=== PATIENT | male | born 1980 | race Caucasian/White ===

== ENCOUNTER 2024-10-28 08:42 | Emergency (ER) | payer OTHER, SELFPAY ==
--- OUTSIDE RECORDS SUMMARY | 2024-10-28 08:45 | XMS_ITS ---
Author Organization [facility] Address [address] [place] [address] Care Team Providers Care Print Operator Name Role Phone Jas Iverson Primary Care Provider REASON FOR VISIT AWM Social History Sex Assigned At : Social History Observation Description Sex Assigned At Male Encounters Encounter Location Date Provider Diagnosis [address] [address] 10/25/2024 Jas Iverson Plan Of Treatment No Information Progress Notes * Jose SOLISOB:1980 (43 yo M)Acc No.[id number]:10/25/2024 UNLOCKED PROGRESS NOTE Patient: Bijan HERNANDEZ :1980 A ge:43 Y S ex:Male Phone: Address:[place], [address] Subjective: * Chief Complaints: * A WM * HPI: A mbulatory Withdrawal Intake: Intake Screening for Ambulatory Withdrawal Services F or female patients, are you currently ? M tasha client - not applicable S ubstance of Choice A lcohol, Methamphetamines D ate of last alcohol use: 0 10/20/2024 H ow often do you (or how often were you) consuming alcohol? D aily W hat type of alcohol and how much do you consume when you do drink? l iquor - pint to a 1/5 per day D ate of last methamphetamine use 0 10/20/2024 H ow often do you (or how often did you) use methamphetamines? D aily H ow much methamphetamine did you use with each use? 1 -2g W as alcohol selected in the previous question? Y es A ny alcohol use in the last 30 days? If yes, complete PAWSS (1pt for each yes) Y es I ntoxicated or drunk in the last 30 days??Yes (1 pt) E ta undergone alcohol use rehab treatment or treatment for alcoholism? N o (0 pt) E ta experienced previous episodes of alcohol withdrawal (regardless of severity)? N o (0 pt) E ta experienced blackouts? N o (0 pt) E ta experienced alcohol withdrawal seizures??No (0 pt) E ta experienced delirium tremens or DTs??No (0 pt) H ave you combined alcohol with downers like benzodiazepines or barbiturates in the last 90 days? N o (0 pt) H ave you combined alcohol with any other substance of abuse during the last 90 days? N o (0 pt) F or substances other than alcohol, have you ever experienced seizures while going through withdrawal/detox? N o W hat MAR medication(s) are you seeking? C omfort medications for withdrawal period., Oral buprenorphine-containing products (suboxone, subutex, zubsolv), Oral naltrexone, Long-acting Vivitrol injection, Long-acting Sublocade (buprenorphine) injection, Long-acting Brixadi (buprenorphine) injection, Other: H ave you used comfort medications in the past to help reduce unpleasant symptoms during the withdrawal or detox process? N o P atient education provided (_select all that apply): A ll patients: Be sure to hydrate prior to and during detox. We encourage you to sip water, drinking eight 8oz glasses of water per day, if possible, and consume ice chips or freezer pops to assist with hydration., All patients: If possible, bring a loved one (roommate, friend, family member) to the appointment for Narcan and other medication education. Some medications may make you drowsy requiring someone else to transport you., All patients: Be aware that if medications are administered on site, the length of the appointment could change. Patients should relay information to transportation., All patients: if your medication of choice is not appropriate or not appropriate at this time, your provider will discuss alternative options with you, including the possibility of starting the medication from home., Pt interested in Naltrexone or Vivitrol: appointment time is approximately 2-3 hours. You must be free of opiates for 7-10 days., Pt interested in buprenorphine: Approximate appointment length is 2 hours. You must be in moderate withdrawal to start medication on site., Pt interested in Sublocade: You must be stable on a buprenorphine containing oral product for 7 days before receiving Sublocade., Pt interested in Brixadi: You must initiate treatment with oral buprenorphine products before receiving the injection. This may add additional time to your appointment if you are not already taking a buprenorphine-containing product. . * Medical History: * Surgical History: * Hospitalization/Major Diagno stic Procedure: * Medications: Objective: * Vitals: * Physical Examination: Assessment: Plan: * Treatment: * Procedure Codes: C HS16 Ambulatory Withdrawal - Intake screening * * Date: History and Physical Notes * HPI (History of Present Illness) Category Sub-Category Detail Notes Category Not es Ambulatory Withdrawal Intake Intake Screening for Ambulatory Withdrawal Services For female patients, are you currently ?: Male client - not applicable . Substance of Choice: Alcohol, Methamphet amines Date of last alcohol use:: 10/20/2024 How often do you (or how often were you) consuming alcohol?: Daily What type of alcohol and how much do you consume when you do drink?: liquor - pint to a 1/5 per day Date of last methamphetamine use: 10/20/2024 How often do you (or how often did you) use methamphetamines?: Daily How much methamphetamine did you use with each use?: 1-2g Was alcohol selected in the previous que stion?: Yes Any alcohol use in the last 30 days? If yes, complete PAWSS (1pt for each yes): Yes Intoxicated or drunk in the last 30 days?: Yes (1 pt) Ever undergone alcohol use rehab treatment or treatment for alcoholism?: No (0 pt) Ever experienced previous episodes of alcohol withdrawal (regardless of severity)?: No (0 pt) Ever experienced blackouts?: No (0 pt) Ever experienced alcohol withdrawal seizures?: No (0 pt) Ever experienced delirium tremens or DTs?: No (0 pt) Have you combined alcohol with downers like benzodiazepines or barbiturates in the last 90 days?: No (0 pt) Have you combined alcohol with any other substance of abuse during the last 90 days?: No (0 pt) For substances other than al cohol, have you ever experienced seizures while going through withdrawal/detox?: No What MAR medication(s) are y ou seeking?: Comfort medications for withdrawal period., Oral buprenorphine-containing products (suboxone, subutex, zubsolv), Oral naltrexone, Long-acting Vivitrol injection, Long-acting Sublocade (buprenorphine) injection, Long-acting Brixadi (buprenorphine) injection, Other: Have you used comfort medica tions in the past to help reduce unpleasant symptoms during the withdrawal or detox process?: No Patient education provided ( _select all that apply):: All patients: Be sure to hydrate prior to and during detox. We encourage you to sip water, drinking eight 8oz glasses of water per day, if possible, and consume ice chips or freezer pops to assist with hydration., All patients: If possible, bring a loved one (roommate, friend, family member) to the appointment for Narcan and other medication education. Some medications may make you drowsy requiring someone else to transport you., All patients: Be aware that if medications are administered on site, the length of the appointment could change. Patients should relay information to transportation., All patients: if your medication of choice is not appropriate or not appropriate at this time, your provider will discuss alternative options with you, including the possibility of starting the medication from home., Pt interested in Naltrexone or Vivitrol: appointment time is approximately 2-3 hours. You must be free of opiates for 7-10 days., Pt interested in buprenorphine: Approximate appointment length is 2 hours. You must be in moderate withdrawal to start medication on site., Pt interested in Sublocade: You must be stable on a buprenorphine containing oral product for 7 days before receiving Sublocade., Pt interested in Brixadi: You must initiate treatment with oral buprenorphine products before receiving the injection. This may add additional time to your appointment if you are not already taking a buprenorphine-containing product.
--- OUTSIDE RECORDS SUMMARY | 2024-10-28 08:45 | XMS_ITS | Patient Health Record ---
Author Organization [facility] Address [address] [place] [address] Care Team Providers Care Aviation Mechanic Name Role Phone Jas Iverson Primary Care Provider Lucia Gomez Unavailable [phone] Allergies No Known Allergies Results Component Value Reference Range Notes 14 Panel Urine Drug Screen Reviewed date:10/26/2024 08:47:28 AM Interpretation: Performing Lab: Notes/Report: THC POS LOBITO neg MOP (OPI) neg AMP POS MET POS BAR neg BZO neg MDMA neg MTD neg OXY neg PCP neg BUP neg TCA neg FTY neg Breathalyzer Reviewed date:10/26/2024 10:29:10 AM Interpretation: Performing Lab: Notes/Report: CASIE 0.000 Reason For Referral No Information Medications Medication SIG (Take, Route, Frequency, Duration) Notes Start Date End Date Status ARIPiprazole 5 MG 1 tablet Orally at night 022 Active Atorvastatin Calcium 40 MG 1 tablet Orally Once a day Active Ibuprofen 800 MG 1 tablet with food or milk as needed Orally every 8 hrs; Duration: 30 days As needed PAIN Not-Taking Ketoconazole 2 % 1 application TO FEE T Externally Once a day Unknown DULoxetine HCl 60 MG 1 capsule Orally On ce a day 01/03/2020 Active Tadalafil 5 MG 1 tablet as needed A T LEAST 1-2 HOURS PRIOR TO SEX Orally Once a day; Duration: 30 days Active BD Luer-Kevin Syringe 22G X 1-1/2 3 ML USE FOR TESTOSTERONE INTRAMUSCULARLY EVERY 2 WEEKS; Duration: 28 Not-Taking Testosterone Cypionate 200 MG/ML 1 ML Intramuscular EVERY 2 WEEKS 10/26/2024 Active Immunizations Vaccine Route Administration Date Status Comme nts FLU VAC NO PRSV 4VAL 6 mo+ IM Intramuscular 12/12/2019 Administered VIS Date 11/09/2018 Pt tolerated injection well. FLU VAC NO PRSV 4VAL 6 mo+ IM Intramuscular 02/02/2022 Administered Pt tolerated injection well. Pt voiced no questions or concerns Social History Sex Assigned At : Social History Observation Description Sex Assigned At Male PRAPARE Question Answer Notes Date Completed/Updated: 12/30/2022 What is your current housing situation? I do not have housing (staying with others, in a hotel, in a senior living, living outside on the street, on a beach, or in a park) Are you worried about losing your housing? No What is the highest level of school that you have finished? Less than a high school degree What is your current work situation? Oth erwise unemployed but not seeking work (ex. student, retired, disabled, unpaid primary rn managed care) In the past year, have you o r any family members you live with been unable to get any of the following when it was really needed? Check all that apply Food,Clothing,Utilities Has lack of transportation k ept you from medical appointments, meetings, work or from getting things needed for daily living? Yes, it has kept me from medical appointments or from getting my medications,Yes, it has kept me from non-medical meetings, appointments, work, or getting things needed for daily living How often do you see or talk to people that you care about and feel close to? (For example: talking to friends on the phone, visiting friends or family, going to anabaptist or club meetings) More than 5 times a week How stressed are you? Stress is when someone feels tense, nervous, anxious, or can\t sleep at night because their mind is troubled Quite a bit In the past year have you sp ent more than 2 nights in a row in a snf, care home, assisted center, or juvenile correctional facility? No Are you a refugee? I choose not to answer this q uestion What country are you from? I choose not to answe r this question In the past year, have you b een afraid of your partner or ex-partner? No PRAPARE Score: 12 Problems Problem Type SNOMED Code ICD Code Onset Dates Problem Status W/U Status Risk Notes Problem Tobacco user (535507545) Nicotine dependence, unspecified, uncomplicated (F17.200) Active confirmed Problem Chronic pain (56627517) Other chronic pain (G89.29) Active confirmed Problem Backache (626040182) Dorsalgia, unspecified (M54.9) Active confirmed Problem Depression (140235675) Depression (F32.9) 03/26/20 20 Active confirmed Problem Posttraumatic stress disorder (46492431) PTSD (post-traumatic stress disorder) (F43.10) Active confirmed Problem Psychoactive substance dependence (6589165) Chemical dependency (F19.20) Active confirmed Problem Acute exacerbation of chronic obstructive airways disease (190344878) COPD exacerbation (J44.1) Active confirmed Problem Chronic fatigue syndrome (70859293) Chronic fatigue (R53.82) Active confirmed Problem Nicotine dependence (90102570) Nicotine dependence (F17.200) Active confirmed Problem Obesity (943437330) Obesity (BMI 30-39.9) (E66.9) Active confirmed Problem Erectile dysfunction (disorder) (859443547) Erectile dysfunction, unspecified erectile dysfunction type (N52.9) Active confirmed Problem Hyperlipidaemia (81499399) Hyperlipidemia, unspecified hyperlipidemia type (E78.5) Active confirmed Problem COPD - Chronic obstructive pulmonary disease (76853685) Chronic obstructive pulmonary disease, unspecified COPD type (J44.9) Active confirmed Problem Bipolar disorder (47009818) Bipolar affective disorder, remission status unspecified (F31.9) 11/06/19 20 Active confirmed Problem Sexual dysfunction (63761040) Sexual dysfunction (R37) Active confirmed Problem Tobacco use (935008446) Tobacco use disorder (F17.200) Active confirmed Problem Obesity (061257254) Obesity, unspecified classification, unspecified obesity type, unspecified whether serious comorbidity present (E66.9) Active confirmed Problem Androgen deficiency (49895810) Testosterone deficiency (E34.9) Active confirmed Problem Opioid use disorder (7191330308) Opioid use disorder (F11.99) Active confirmed Problem Osteoarthritis (986347279) Osteoarthritis involving multiple joints on both sides of body (M15.9) Active confirmed Problem Cannabis-related disorder (49672863) Cannabis-related disorder (F12.99) Active confirmed Vital Signs Heart Rate 87 /min 10/26/2024 Temperature 98.4 degrees Fahrenheit 10/26/2024 Respiratory Rate 16 /min 10/26/2024 Blood pressure diastolic 80 mm Hg 10/26/2024 Oximetry 99 % 10/26/2024 Height 69 in 10/26/2024 Blood pressure systolic 118 mm Hg 10/26/2024 Weight 197.4 lbs 10/26/2024 BMI 29.15 kg/m2 10/26/2024 Encounters Encounter Location Date Provider Diagnosis [address] [place] [address] 04/19/2024 Jas Iverson Bipolar affective disorder, remission status unspecified F31.9 ; Hyperlipidemia, unspecified hyperlipidemia type E78.5 ; Sexual dysfunction R37 ; Opioid use disorder F11.99 ; Testosterone deficiency E34.9 and Exposure to potential infection Z20.9 [facility] [address] [place] [address] 10/26/2024 Jas Iverson Opioid use disorder F11.99 ; Bipolar affective disorder, remission status unspecified F31.9 ; Dorsalgia, unspecified M54.9 ; Other chronic pain G89.29 ; Cannabis-related disorder F12.99 ; Testosterone deficiency E34.9 ; Exposure to potential infection Z20.9 ; Chronic fatigue R53.82 ; Sexual dysfunction R37 and Hyperlipidemia, unspecified hyperlipidemia type E78.5 [facility] [address] [place] [address] 10/26/2024 Lucia Gomez PTSD (post-traumatic stress disorder) F43.[address] [place] [address] 10/25/2024 Jas Iverson [address] [place] [address] 07/25/2024 Jas Iverson Bipolar affective disorder, remission status unspecified F31.9 ; Sexual dysfunction R37 and Testosterone deficiency E34.9 Assessments Encounter Date Diagnosis (ICD Code) Assessment Notes Treatment Notes Treatment Clinical Notes Section Notes 04/19/2024 Bipolar affective disorder, remission status unspecified (ICD-10 - F31.9) 04/19/2024 Hyperlipidemia, unspecified hyperlipidemia type (ICD-10 - E78.5) 07/25/2024 Bipolar affective disorder, remission status unspecified (ICD-10 - F31.9) 10/26/2024 Bipolar affective disorder, remission status unspecified (ICD-10 - F31.9) 10/26/2024 Opioid use disorder (ICD-10 - F11.99) 10/26/2024 PTSD (post-traumatic stress disorder) (ICD-10 - F43.10) 10/26/2024 Dorsalgia, unspecified (ICD-10 - M54.9) 07/25/2024 Sexual dysfunction (ICD-10 - R37) 04/19/2024 Sexual dysfunction (ICD-10 - R37) 07/25/2024 Testosterone deficiency (ICD-10 - E34.9) 10/26/2024 Other chronic pain (ICD-10 - G89.29) 04/19/2024 Opioid use disorder (ICD-10 - F11.99) ABSTATINING, SOBER SINCE 04/02/2024 10/26/2024 Cannabis-related disorder (ICD-10 - F12.99) 10/26/2024 Testosterone deficiency (ICD-10 - E34.9) 04/19/2024 Testosterone deficiency (ICD-10 - E34.9) 04/19/2024 Exposure to potential infection (ICD-10 - Z20.9) 10/26/2024 Exposure to potential infection (ICD-10 - Z20.9) 10/26/2024 Chronic fatigue (ICD-10 - R53.82) 10/26/2024 Sexual dysfunction (ICD-10 - R37) 10/26/2024 Hyperlipidemia, unspecified hyperlipidemia type (ICD-10 - E78.5) 10/26/2024 Other [place]/O ISSUES 10/26/2024 Other Clinician met w ith client to assess needs for residential services. Clinician gathered information regarding historical presentation of mental health and substance use symptoms including withdrawal, HIV Risk assessment, psychiatric hospitalization history and presenting concern. Clinician conducted PHQ9 and CSSRS assessments as well as social drivers of health screening for the purposes of identifying additional service needs. Plan Of Treatment Pending Test Test Name Order Date Vitamin B12 and Folate 11/06/2019 CBC With Differential/Platelet* 11/06/19 20 C-Reactive Protein, Quant 11/06/2019 CMP13 11/06/2019 TSH Rfx on Abnormal to Free T4 0 Future Test Test Name Order Date Xray : Hand, right 07/28/2020 Xray : Wrist, right 07/28/2020 Xray : Forearm, right 07/28/2020 HIV Screen *HIV 1, 2 Ab, p24 Ag ([id number]) 10/26/2024 Testosterone, Serum 10/26/2024 CBC With Differential/Platelet* 10/27/19 25 Hepatitis B Surface Antigen (HBsAg Scree n) 10/26/2024 Hepatitis C Virus Antibody w/Rflx to Shaheen ntitative Real-time PCR ([id number]) 10/26/2024 CMP 14 Comprehensive Metabolic Panel* TSH Rfx on Abnormal to Free T4 5 QuantiFERON-TB Gold Plus (321898) 2024 Rapid Plasma Reagin (RPR) Te st With Reflex to Quantitative RPR and Confirmatory Treponema pallidum Antibodies 10/26/2024 Insurance Providers Payer Name Payer Address Payer Phone Subscriber Number Group Number Insured Name Patient Relationship to Insured Coverage Start Date Coverage End Date [facility] Attn Claims Department [address] [place] [id number] Bijan Solis Self - patient is the insured 0 [employer] Attn Claims Department [address] [place] [id number] Bijan Solis Self - patient is the insured 0 [facility] [employer] Attn Claims Department [address] [place] [id number] Bijan Solis Self - patient is the insured 0 Medications Administered Medication Instructions Date of Administration Dosage Notes Testosterone 10/12/2021 200 mg Pt tolerated injection well. Pt. voiced no questions or concerns. Testosterone 10/21/2021 200 mg Pt tolerated injection well. Pt voiced no questions or concerns. Testosterone 11/17/2021 200 mg Pt tolerated injection well. Pt voiced no questions or concerns Testosterone 02/02/2022 200 mg Pt tolerated injection well. Pt voiced no questions or concerns. Testosterone 03/30/2022 200 mg Testosterone 09/29/2022 200 mg Testosterone 10/29/2022 200 mg Medical (General) History Medical History History ICD Code OUD Surgical History Surgery Date(Month/Year) Back surgery 2012 [facility]
[2024-10-28 09:05] VITALS: BP 137/76; PULSE 64; RESP 20; TEMP 36.6; O2SAT 99
--- NOTE | 2024-10-28 09:50 | ED.GENADULT ---
HPI - General Adult General Chief complaint: Dental/Oral Stated complaint: teeth problems Time Seen by Provider: 10/28/24 09:01 History of Present Illness HPI narrative: 43-year-old male presents to the emergency department for evaluation for worsening left upper dental pain. Patient does have a history of dental fracture and dental decay. Patient states that the pain worsened after eating breakfast. Patient has been taking Tylenol for pain control. Patient denies any medication allergies. Related Data Allergies Allergy/AdvReac Type Severity Reaction Status Date / Time No Known Allergies Allergy Verified 10/28/24 09:09 Review of Systems Review of Systems: All systems reviewed & are unremarkable except as noted in HPI and below PMFSH Family History Family History (Updated 10/24/15 @ 23:21 by DOCTOR UNKNOWN) Mother Family history of rheumatoid arthritis Family history of lupus erythematosus Family history of chronic obstructive pulmonary disease Father Hypertension Family history of diabetes mellitus in first degree relative Family history of coronary artery disease, Onset Age: 52 Sibling Family history of rheumatoid arthritis Patient's brother is in good health Family history of lupus erythematosus Social History Social History Smoking status: Smoker, status unknown Alcohol intake: never Exam Narrative: APPEARANCE: Well appearing, no pain, no distress, well-nourished. HEAD: normocephalic, atraumatic. EYES: PERRLA/EOMI, conjunctivae clear. Mouth: No trismus, no abscess amenable to drainage. Patient does have fractures of posterior molars on the left upper. NOSE: Normal no drainage EARS:TMS clear with good light reflex. THROAT: Pharynx clear, no exudate. NECK: Supple. No adenopathy, no masses. MUSCULOSKELETAL: Moves all extremities. Strength/ROM intact, No edema, No calf tenderness. NEURO: Alert. Cranial nerves II through XII intact. Good gait. Good coordination SKIN: Warm, dry. Normal Color PSYCHIATRIC: Normal affect/mood. Course Vital Signs Vital signs: Vital Signs Temperature 97.8 F 10/28/24 09:05 Pulse Rate 64 10/28/24 09:05 Respiratory Rate 20 10/28/24 09:05 Blood Pressure 137/76 10/28/24 09:05 Pulse Oximetry 99 10/28/24 09:05 Oxygen Delivery Room Air 10/28/24 09:05 Temperature 97.8 F 10/28/24 09:05 Pulse Rate 64 10/28/24 09:05 Respiratory Rate 20 10/28/24 09:05 Blood Pressure 137/76 10/28/24 09:05 Pulse Oximetry 99 10/28/24 09:05 Oxygen Delivery Room Air 10/28/24 09:05 Medical Decision Making MDM Narrative Medical decision making narrative: 43-year-old male presents emergency department for evaluation for dental pain. Patient will find a dentist for outpatient follow-up with. Patient was started on Augmentin the emergency department. Patient was comfortable the plan for Tylenol and ibuprofen for pain control. Differential Diagnosis Differential Diagnosis: Dental abscess, dental fracture, dental mark Vital Signs Vital Signs: Vital Signs Temperature 97.8 F 10/28/24 09:05 Pulse Rate 64 10/28/24 09:05 Respiratory Rate 20 10/28/24 09:05 Blood Pressure 137/76 10/28/24 09:05 Pulse Oximetry 99 10/28/24 09:05 Oxygen Delivery Room Air 10/28/24 09:05 Temperature 97.8 F 10/28/24 09:05 Pulse Rate 64 10/28/24 09:05 Respiratory Rate 20 10/28/24 09:05 Blood Pressure 137/76 10/28/24 09:05 Pulse Oximetry 99 10/28/24 09:05 Oxygen Delivery Room Air 10/28/24 09:05 Discharge Plan Discharge Clinical Impression: Dental caries, Fracture of tooth Patient Disposition: Home Condition: Stable Instructions: Antibiotic Form, Toothache (ED) Additional Instructions: Antibiotic as directed until completed. Tylenol and ibuprofen for pain control. Have close follow-up with your dentist. If you have any worsening symptoms then please call or return to the emergency department. Patient Language: Italian Prescriptions: New amoxicillin-pot clavulanate 875-125 mg tablet 1 tablet PO Q12H 7 Days Qty: 14 0RF Follow-up/Referrals: Jas Iverson MD [Primary Care Provider] -
[2024-10-28] MEDS: KETOROLAC (*BKC) 60 MG/2 ML VIAL IM (10:17)
== END 2024-10-28 10:22 | disposition home or self-care (01) ==
PROVIDERS: Emergency Provider Emergency Medicine; PCP Internal Medicine
DX: K02.9 Dental caries, unspecified (principal); S02.5XXA Fracture of tooth (traumatic), initial encounter for closed fracture
CPT/HCPCS: 96372; 99283; A9270; J1885